=== PATIENT | male | born 1960 | race Caucasian/White ===

== ENCOUNTER 2016-12-23 16:07 | Emergency (ER) | payer OTHER ==
[~2016-12-23] VITALS: Ht 193 cm; Wt 90.7 kg
[2016-12-23 16:14] VITALS: BP 132/89
--- NOTE | 2016-12-23 17:56 | ED SYNCOPE COMPLAINT ---
History of Present Illness General Chief Complaint: Syncope and Near-Syncope Stated Complaint: SIB PAIN CNTR, RIGHT KNEE INJECTION, NEAR SYNCOPE Source: patient Exam Limitations: no limitations Vital Signs & Intake/Output Vital Signs & Intake/Output Vital Signs Date Time Temp Pulse Resp B/P B/P Pulse O2 O2 Flow FiO2 Mean Ox Delivery Rate 12/23 1921 97 12/23 1614 97.0 69 16 132/89 97 Room Air Allergies Coded Allergies: No Known Allergies (12/23/16) Triage Note: PT STATES HE HAD [facility] AND HE WATCHED STATES HE NEVER WATCHES AND HE GOT LIGHT HEADED AND ALMOST PASSED OUT. PT DID EAT ABOUT 10AM TODAY. PT DID HAVE NAUSEA AND STATES HE VOMITED Triage Nurses Notes Reviewed? yes Timing: single episode today Loss of Consciousness: no loss of consciousness HPI: Patient is a 56-year-old male with past medical history chronic pain and chronic right knee pain where today he was in his normal state of health patient states that today he was receiving in right knee injection of steroids where approximately 5 minutes after the injection which was 3 hours ago he began having acute onset of lightheaded sensation dizziness and nausea or patient had 1 episode of nonbloody nonbilious emesis. Patient states that 30 minutes later his symptoms had completely resolved. Patient currently is asymptomatic. Denies any illicit drug use. Denies any cardiac history or family history of cardiac before the age of 55. (RENEA MCGOWAN) Past History Travel History Traveled to [place] past 21 day No Medical History Any Pertinent Medical History? see below for history Musculoskeletal: CHRONIC KNEE PAIN Surgical History Surgical History: non-contributory Psychosocial History What is your primary language Faroese Tobacco Use: Never used ETOH Use: occasional use Illicit Drug Use: denies illicit drug use Family History Hx Contributory? No (RENEA MCGOWAN) Review of Systems Review of Systems Constitutional: Reports: see HPI. EENTM: Reports: no symptoms. Respiratory: Reports: no symptoms. Cardiovascular: Reports: no symptoms. GI: Reports: see HPI, nausea. Genitourinary: Reports: no symptoms. Musculoskeletal: Reports: no symptoms. Skin: Reports: no symptoms. Neurological/Psychological: Reports: no symptoms. All Other Systems: Reviewed and Negative (RENEA MCGOWAN) Physical Exam Physical Exam General Appearance: no apparent distress, alert Cranial Nerves: normal hearing, normal speech, PERRL Comments: Well-developed well-nourished person in no acute distress HEENT: Normal EENT exam, Neck: Supple, no lymphadenopathy, normal range of motion without pain or tenderness Back: Nontender, no CVA tenderness. Cardiovascular: Regular rate and rhythms no murmurs rubs or gallops, normal JVP Respiratory: Chest nontender. No respiratory distress.breath sounds clear to auscultation bilaterally Abdomen: Soft, nontender nondistended, no appreciable organomegaly. Normal bowel sounds. No ascites Extremity: No edema, no calf tenderness to palpation, normal and equal pulses. Neuro: Alert oriented x3, motor sensory normal, Skin: No appreciable rash on exposed skin, skin is warm and dry. Psych: Mood and affect is normal, memory and judgment is normal. Core Measures ACS in differential dx? Yes CVA/TIA Diagnosis: No Severe Sepsis Present: No Septic Shock Present: No (SID CERNA,RENAE) Progress Differential Diagnosis: AMI, aortic dissection, aortic valve, drug induced syncope, hyperventilation, orthostatic syncope, other valvular disease, pacemaker malfunction, pericardial tamponade, pulmonary embolus, seizure, sick sinus syndrome, subarachnoid hem., TIA/CVA, vasodepressor syncope, ventricular tach/fib, VASOVAGAL RESPONSE Plan of Care: Orders Procedure Date/time Status Telemetry/Liquor Bridge Operator Helper 12/24 1755 Active TROPONIN LEVEL 12/23 175 Complete MAGNESIUM 12/23 175 Complete COMPREHENSIVE METABOLIC PANEL 12/23 175 Complete CBC WITHOUT DIFFERENTIAL 12/24 1755 Complete EKG 12/24 1755 Active Laboratory Tests 12/23/16 1807: Anion Gap 11, Estimated GFR > 60, BUN/Creatinine Ratio 25.7 H, Glucose 103 H, Calcium 9.0, Magnesium 2.2, Total Bilirubin 0.5, AST 27, ALT 39, Alkaline Phosphatase 78, Troponin I < 0.01, Total Protein 7.6, Albumin 4.5, Globulin 3.1, Albumin/Globulin Ratio 1.5, CBC w Diff NO MAN DIFF REQ, RBC 5.37, MCV 83.6, MCH 27.9, RDW 13.6, MPV 8.2, Gran % 81.9 H, Lymphocytes % 13.2 L, Monocytes % 3.8, Eosinophils % 0.8, Basophils % 0.3, Absolute Granulocytes 7.5 H, Absolute Lymphocytes 1.2, Absolute Monocytes 0.3, Absolute Eosinophils 0.1, Absolute Basophils 0, PUBS MCHC 33.3 Patient currently is resting comfortably and due to history of present illness and exam findings patient most likely had vasovagal response EKG was normal sinus rhythm Blood work was unremarkable for cardiac troponin or electrolyte abnormality Upon discharge patient looks well no apparent distress and will comply with discharge instructions and had no questions (RENEA MCGOWAN) Initial ED EKG: normal p-waves, normal QRS complex, normal sinus rhythm, 60 BPM (RENEA MCGOWAN) Departure Departure Disposition: HOME OR SELF CARE Condition: Stable Clinical Impression Primary Impression: Vasovagal response Referrals: AKIL SANDERS MD (PCP/Family) Additional Instructions: As discussed follow-up with your primary care doctor as directed. If symptoms worsen return to emergency room. Departure Forms: Customer Survey General Discharge Information (RENEA MCGOWAN) PA/RIDES SUPERVISOR Co-Sign Statement Statement: ED Attending supervision documentation- I saw and evaluated the patient. I have also reviewed all the pertinent lab results and diagnostic results. I agree with the findings and the plan of care as documented in the PA's/RIDES SUPERVISOR's documentation. x I have reviewed the ED Record and agree with the PA's/RIDES SUPERVISOR's documentation. [] Additions or exceptions (if any) to the PAs/RIDES SUPERVISOR's note and plan are summarized below: [] (CARLOS CABELLO,RACHEL)
[2016-12-23 18:22] LABS: ABSOLUTE BASOPHIL COUNT 0 /CUMM (0.0-0.2); ABSOLUTE EOSINOPHIL COUNT 0.1 /CUMM (0.0-0.7); ABSOLUTE GRANULOCYTE CT 7.5 /CUMM (1.4-6.5); ABSOLUTE LYMPH COUNT 1.2 /CUMM (1.2-3.4); ABSOLUTE MONOCYTE COUNT 0.3 /CUMM (0.10-0.60); BASOPHIL % 0.3 % (0.0-2.0); EOSINOPHIL % 0.8 % (0-5); GRANULOCYTE % 81.9 % (42.2-75.2); HEMATOCRIT 44.9 % (42-52); MEAN CORPUSCULAR HGB 27.9 PG (27.0-31.0); MEAN CORPUSCULAR HGB CONC 33.3 G/DL (33.0-37.0); MEAN CORPUSCULAR VOLUME 83.6 FL (80.0-94.0); MEAN PLATELET VOLUME 8.2 FL (7.4-10.4); PLATELET COUNT 212 /CUMM (130-400); RBC DISTRIBUTION WIDTH 13.6 % (11.5-14.5); RED BLOOD CELL CT 5.37 /CUMM (4.70-6.10); WHITE BLOOD CELL COUNT 9.1 /CUMM (4.8-10.8)
== END 2016-12-23 19:20 ==
LOC: ERH 16:07
PROVIDERS: Physician Assistant
DX: R55 Syncope and collapse (principal)
CPT/HCPCS: 93005; 93010